=== PATIENT | female | born 1955 | race Caucasian/White ===

== ENCOUNTER 2017-04-13 20:15 | Observation (INO) | payer OTHER ==
[~2017-04-13] VITALS: Ht 162.6 cm; Wt 92.3 kg
[2017-04-13 20:19] VITALS: BP 129/69; PULSE 73; RESP 16; O2SAT 96
--- NOTE | 2017-04-13 21:07 | ED.REPORT ---
HPI-General Illness Date of Service Apr 13, 2017 ED Provider: Dr. Neri Pt is a generally healthy 62 y/o female presenting to the ED with chief complaint of LUE weakness onset today. Today she experienced left upper chest pain at around 15:00 and also left arm weakness which was present at that time and has persisted and has possibly worsened. Her chest pain did not radiate anywhere and she has no history of cardiac disease. Pt denies arm pain, SOB, nausea, vomiting, lightheadedness, dizziness, numbness/weakness/tingling in any other extremities, vision or speech changes. She denies any leg swelling or pain , hemoptysis, She states she was seen in an ED in [place] recently and discharged with a diagnosis of pancreatitis. There is no history of stroke, DM, HTN, HLD, or smoking. Nursing Notes Stated Complaint: LEFT ARM WEAKNESS Chief Complaint: General Complaint Nursing Notes Reviewed: Yes Allergies: Coded Allergies: No Known Allergies (Unverified Allergy, Unknown, 08/13/14) Scheduled Aspirin (Aspirin) 81 Mg Tablet 81 MG PO QAM Calcium Citrate/Vitamin D3 (Citracal + D Maximum Caplet) 1 Each Tablet 1 EACH PO DAILYWL Levothyroxine (Levothyroxine) 100 Mcg Tablet 100 MCG PO QAM [place]-3/Dha/Epa/Fish Oil (Fish Oil 1,000 mg Softgel) 1 Each Capsule 1 EACH PO DAILY Qce584/Iron Fumarate/FA/Dss ( 19 Tablet) 1 Each Tablet 1 EACH PO DAILYWL Rabeprazole DR (Rabeprazole DR) 20 Mg Tablet 20 MG PO QAM Vit C/E/Zn/Coppr/Lutein/Zeaxan (Preservision Areds 2 Softgel) 1 Each Capsule 1 EACH PO DAILYWL General Time Seen by MD: 21:06 Chief Complaint Weakness (LUE) Hx Obtained From: Patient Sudden in Onset?: No Onset Occurred: 5 - 8 hours ago Symptom Duration: Since onset Location: : Chest Quality: Painful Severity: Current: Mild Severity: Maximum: Mild Similar Sx Previous: No Past Medical History Past Medical History Hx pancreatitis Hypothyroidism RONNY No cardiac history No lung disease. Past Surgical History Reports: Cholecystectomy Smoking History Never Smoker Social History Alcohol Use: Denies alcohol use Ambulatory Status Independent Review of Systems Full Review of Systems Constitutional: Denies: Chills, Fever Respiratory: Denies: Shortness of breath Cardiovascular: Reports: Chest pain GI: Denies: Abdominal pain, Nausea, Vomiting Neurologic: Reports: Focal weakness, Denies: Abnormal movement, Bladder dysfunction, Bowel dysfunction, Change LOC , Confusion, Dizziness, Headache, Lightheaded, Numbness, Problem walking, Seizure, Shaking, Slurred speech, Spinning sensation, Syncope, Unable to speak, Vision change, Weakness Complete sys rev & neg: except as marked. Physical Exam Vital Signs Vital Signs Date Time Temp Pulse Resp B/P Pulse Ox O2 Delivery O2 Flow Rate FiO2 04/13/17 20:19 37.2 73 16 129/69 96 Room Air Initial VS: Reviewed, Vital signs normal Head / Eyes: Atraumatic, Normocephalic ENT: Mucous membranes moist, Conjunctiva normal Neck: Supple, Full range of motion Respiratory: Breath sounds normal, Clear to auscultation, No respiratory distress Cardiovascular: Regular rate & rhythm, Heart sounds normal, Intact distal pulses Abdomen / GI: Soft, Non-tender Extremities: Vascular intact, Neuro intact, No swelling Skin: Warm, Dry, No cyanosis Psychiatric: Mood/affect normal, Behavior normal, Normal thought content General/Constitutional: Awake, Alert, No acute distress, Well appearing, Cooperative, Not toxic appearing Appearance / Presentation: Positive: Obese Neurologic: Oriented X3, Speech NL, No motor deficits, No sensory deficits, CN II - XII intact, Cerebellar NL, Memory NL Interpretation & Diagnostics Lab Results Interpretation Result Diagram: 04/13/170 04/13/17 2210 Test 04/13/17 21:25 04/13/17 21:42 04/13/17 21:52 04/13/17 22:10 Hold Purple Top Tube Received (Received) Hold Blue Top Tube Received (Received) Hold [place] Top Tube Received (Received) Hold Urine Received (Received) White Blood Count 6.2th/mm3 (3.8-10.1) Red Blood Count 4.72mil/mm3 (3.90-5.20) Hemoglobin 14.4g/dL (12.0-15.6) Hematocrit 42.8% (35.0-46.0) Mean Corpuscular Volume 90.7fL (81-100) Mean Corpuscular Hemoglobin 30.5pg (27.0-35.0) Mean Corpuscular Hemoglobin Concent 33.6% (32.0-37.0) Red Cell Distribution Width 13.5% (12.3-15.4) Platelet Count 258bil/L (150-400) Neutrophils (%) (Auto) 51.6% (40-74) Lymphocytes (%) (Auto) 36.4% (14-46) Monocytes (%) (Auto) 8.9% (4-12) Eosinophils (%) (Auto) 2.6% (0-5) Basophils (%) (Auto) 0.3% (0-3) Sodium Level 140mEq/L (134-144) Potassium Level 4.2mEq/L (3.5-5.2) Chloride Level 101mEq/L (97-108) Carbon Dioxide Level 24mmol/L (18-29) Blood Urea Nitrogen 13mg/dL (8-27) Creatinine 0.69mg/dL (0.57-1.00) Estimat Glomerular Filtration Rate 124mL/min (>59) Glucose Level 94mg/dL (60-99) Calcium Level 9.5mg/dL (8.5-10.1) Magnesium Level 2.2mg/dL (1.6-2.6) Total Bilirubin 0.3mg/dL (0.0-1.2) Aspartate Amino Transf (AST/SGOT) 28U/L (0-50) Alanine Aminotransferase (ALT/SGPT) 22U/L (0-32) Alkaline Phosphatase 81U/L (25-165) Troponin T 0.010ug/L (0.0-0.011) Pro-B-Type Natriuretic Peptide 79.86pg/mL (0-287) Total Protein 7.4g/dL (6.4-8.4) Albumin 4.5g/dL (3.4-5.0) Test 04/13/17 22:13 Prothrombin Time 10.1sec (8.1-12.5) Prothromb Time International Ratio 0.95ratio ECG Interpretation Time: 22:47 Interpreted by: ED physician Normal ECG Interpretation: Normal ECG w/ rate of... (65), Normal rate, Normal sinus rhythm, No acute ischemic changes, Normal QRS, Normal axis, Normal intervals, No change from prior ECGs, Adequate tracing X-Ray Chest Interpretation View: Portable, 1 view Interpretation / Wet Read by: Wet read ED physician NL X-Ray Chest Findings: No infiltrate, No acute disease CT Head Interpretation Conclusion: Minimal age-related atrophy. No acute intracranial abnormality. Interpreted by Juan Alba MD Study: Head CT no contrast Interpretation / Wet Read by: Interpret - Radiologist Re-Eval/Medical Decision Med Decision/Clinical Course 62-year-old female history of hypothyroidism presenting complaining of left-sided chest pain and left arm weakness earlier today. Chest pain lasted 30 minutes. Left arm weakness lasted until arrival. She has no history of stroke or heart problems. Vital signs are stable. No EKG changes. Troponins are negative 1. Her neurological exam is normal. Her CT scan shows no acute pathology. Cannot r/o ACS or TIA. Patient will be admitted for ACS rule out and stroke workup. Given aspirin. Source of Hx: Old records Time of Eval: 22:53 Re-Evaluation/Progress Note: Pt rechecked. Informed pt of need for admission for ACS rule-out. Pt understands and agrees with plan for admission. All questions addressed. Consultation : Referral / Consult Name: Alma Nguyen DO Consulted With: Hospitalist Call Returned at: 00:01 Jockey Valet: Will see patient, Agrees with eval, Agrees with plan, Accepts admit Counseled Regarding: Diagnosis, Lab results, Need for admission Discharge & Departure Primary Impression: Chest pain Chest pain type: unspecified Qualified Code: R07.9 - Chest pain, unspecified Additional Impression: LUE weakness Disposition: ADMITTED TO HOSPITAL Discharge Condition All VS Reviewed: Yes Condition: Stable Referrals: OTHER,PHYSICIAN (PCP) (Family) Scribe Attestation Portions of this note were transcribed by Geovanni Wylie. I, Dr. Neri personally performed the history, physical exam and medical decision-making; I reviewed and confirmed the accuracy of the information in the transcribed note. Se Neri MD Apr 13, 2017 21:07 GEOVANNI WYLIE Apr 13, 2017 21:53
[2017-04-13 22:16] LABS: BASOPHILS % (AUTO) 0.3 % (0-3); EOSINOPHILS % (AUTO) 2.6 % (0-5); MONOCYTES % (AUTO) 8.9 % (4-12); Mean Corpuscular Hemoglobin 30.5 pg (27.0-35.0); Mean Corpuscular Volume 90.7 fL (81-100); NEUTROPHILS % (AUTO) 51.6 % (40-74); Platelet Count 258 bil/L (150-400)
[2017-04-13 22:27] LABS: TROPONIN T 0.01 ug/L (0.0-0.011)
[2017-04-13 22:29] LABS: INR 0.95 ratio
[2017-04-13 22:39] LABS: Magnesium 2.2 mg/dL (1.6-2.6)
[2017-04-13] MEDS ORDERED: RABE20TA27 PO (23:45)
[2017-04-13] MEDS ORDERED: LEVO100T6 PO (23:45)
[2017-04-13] MEDS ORDERED: OMEG-38 PO (23:45)
[2017-04-13] MEDS ORDERED: PREN-56 PO (23:45)
[2017-04-13] MEDS ORDERED: VIT1CAPS46 PO (23:45)
[2017-04-13] MEDS ORDERED: CALC-761 PO (23:45)
[2017-04-13] MEDS ORDERED: ASPI-973 PO (23:45)
[2017-04-14] VITALS (10 sets, daily range): BP systolic 108–140; BP diastolic 67–87; PULSE 55–68; RESP 17–18; O2SAT 94–98
[2017-04-14] MEDS ORDERED: Ondansetron 2 mg/mL 2 mL Inj IVPUSH PRN ×2 (00:05→00:35)
[2017-04-14] MEDS ORDERED: Alum-Mag Hydrox-Simeth 30 mL Suspension PO PRN (00:05)
[2017-04-14 00:27] LABS: APPEARANCE,URINE CLEAR (CLEAR,HAZY); COLOR,URINE YELLOW (YELLOW); OCCULT BLOOD,URINE NEGATIVE (NEGATIVE); PH,URINE 6.5 (5.0-8.0); UROBILINOGEN,URINE NORMAL (NORMAL)
[2017-04-14] MEDS ORDERED: Polyethylene Glycol (PEG) 17 Gm Powder PO PRN (00:35)
[2017-04-14] MEDS ORDERED: Labetalol 5 mg/mL 20 mL Inj IVPUSH PRN (00:35)
--- NOTE | 2017-04-14 00:38 | NUR ---
Med Rec completed in ED by pharmacy.
--- NOTE | 2017-04-14 05:21 | PCM.HPMED ---
Subjective Date of Service Apr 14, 2017 Primary Provider: Admitting Physician: Alma Nguyen DO Primary Care Physician: Other,Physician Attending Physician: Alma Nguyen DO Admit Status: From the Emergency Department Chief Complaint: Left arm weakness with chest pain History of Present Illness: Ms. Zavala is a 62-year-old female with past medical history of pancreatitis, hypothyroidism, obstructive sleep apnea who presents to the ED via POV secondary to chest pain and left upper extremity numbness/weakness. Patient states that today 04/13/2017 at approximately 1500 hrs. she was working on her computer when she felt a tightness in her chest lasting approximately 45 minutes. Of note patient states that she "does not manifest pain properly" and has been told by her physicians in the past that she has a high/different pain tolerance/physiological response than other people. Today her chest tightness which she states other people may describe his pain was located in her left sternal area, nonradiating with the severity of 2/10. She denied any accompanying nausea or vomiting, headache or visual disturbances. Nothing made this tightness feel any better or worse. This feeling of tightness was also accompanied with a weakness in her left upper extremity which subsided approximately at the time of her arrival to the ED. After the initial onset of chest tightness and left upper extremity weakness she went about her day and felt a resolution of the chest tightness approximately 40 minutes after it began. The left upper extremity weakness and numbness remained throughout the day and she states she would forget about its presence until she would try to lift a heavy object. She drove to her daughter's house approximately 5 minutes away later that evening described to her what it happened earlier in the day and was immediately brought to the emergency room. At time of interview patient has no complaints, states complete resolution of chest tightness and left upper extremity numbness/weakness. In the emergency room EKG was unremarkable, CT scan normal, neuro exam also unremarkable. Troponins negative 1. Patient admitted for ACS rule out Of note patient was seen in the emergency department in [place] last week for epigastric discomfort which she was told was due to pancreatitis. Review of Systems: A comprehensive review of systems was conducted with the patient and found to be negative except as above in the history of present illness. Allergies Coded Allergies: No Known Allergies (Unverified Allergy, Unknown, 08/13/14) Home Medications Aspirin (Aspirin) 81 Mg Tablet 81 MG PO QAM Calcium Citrate/Vitamin D3 (Citracal + D Maximum Caplet) 1 Each Tablet 1 EACH PO DAILYWL Levothyroxine (Levothyroxine) 100 Mcg Tablet 100 MCG PO QAM [place]-3/Dha/Epa/Fish Oil (Fish Oil 1,000 mg Softgel) 1 Each Capsule 1 EACH PO DAILY Wgm508/Iron Fumarate/FA/Dss ( 19 Tablet) 1 Each Tablet 1 EACH PO DAILYWL Rabeprazole DR (Rabeprazole DR) 20 Mg Tablet 20 MG PO QAM Vit C/E/Zn/Coppr/Lutein/Zeaxan (Preservision Areds 2 Softgel) 1 Each Capsule 1 EACH PO DAILYWL PMH Hx pancreatitis Hypothyroidism RONNY Macular degeneration Reports: Hyperlipidemia Surgical History 4 knee surgeries, 3 right knee 1 left knee Uterine polyp removal 2013 Cholecystectomy 2013 2 C-sections Family History Pancreatitis Hypothyroidism RONNY Social History Hx Alcohol Use: No Hx Substance Use: No Hx Tobacco Use: No Smoking Status: Never Smoker Exam Vital Signs Vital Sign - Last Date Time Temp Pulse Resp B/P Pulse Ox O2 Delivery O2 Flow Rate FiO2 04/13/17 20:19 37.2 73 16 129/69 96 Room Air Intake and Output 04/13/17 04/13/17 04/14/17 Cumulative From/Thru 15:00 23:00 07:00 04/13/17 20:19 - 04/13/17 21:30 Intake Total 0 ml 0 ml Balance 0 ml 0 ml Intake Oral 0 ml 0 ml Exam General: Awake and alert sitting up in hospital bed in no acute distress, well- developed, well-nourished, appropriately interactive. HEENT: Normocephalic, atraumatic. External ears without defect. Pupils equal, round, and reactive to light and accommodation. Anicteric sclerae, moist conjunctivae, and no lid lag. Oropharynx free of erythema and cobble stoning with moist mucosa. Neck: Supple with full range of motion. No jugular venous distension. No bruits. No lymphadenopathy or thyromegaly. Cardiovascular: Regular rate and rhythm with no murmurs, rubs, or gallops appreciated Pulmonary: Clear to auscultation bilaterally with no crackles, wheezes, or rhonchi. Normal respiratory effort with no use of accessory muscles. Abdomen: Bowel tones present. Soft, nontender, nondistended. No hepatosplenomegaly or masses appreciated. Extremities: No clubbing, cyanosis, edema, or lymphadenopathy appreciated. Skin: Normal temperature, turgor, and texture; no rash, ulcers, or subcutaneous nodules appreciated. Neurological: Cranial nerves grossly intact. Normal muscle strength, tone, and bulk. Reflexes, coordination, and sensory function within normal limits. No known gait impairment. Psychiatric: Normal mood and affect. Alert and oriented to person, place, and time. Lab and Diagnostics Result Diagram: 04/13/17220904/13/172209 X-Rays, CTs and MRIs . CT head Conclusion: Minimal age-related atrophy. No acute intracranial abnormality Interpreted by Hernan Lynn M.D. Assessment & Plan Ms. Zavala is a 62-year-old female with past medical history of pancreatitis, hypothyroidism, obstructive sleep apnea admitted for chest pain with left upper extremity weakness & rule out ACS. Chest pain POA. Ongoing -EKG reported to be unremarkable, normal rate normal rhythm and no ST elevations or peaked T waves -Lipid panel shows mixed hyperlipidemia -Initial troponin negative, repeat value pending -Telemetry -ASA -Continue to monitor -no beta chadwick, bradycardia Possible TIA, present on admission. Ongoing -CT shows no acute pathology -Neuro exam unremarkable -Swallow eval pending -PT/OT consult ordered -Continue to monitor Hypothyroidism, present on admission. Ongoing -Continue home levothyroxine Hyperlipidemia, present on admission. -Atorvastatin Patient Status: Patient was admitted under observational status awaiting further laboratory studies. GI Prophylaxis: H2 chadwick VTE Prophylaxis: Sub-Q Heparin (Unfractionated) Resuscitation Status: CPR: Attempt Resuscitation Attending Statement The patient was seen and examined together with house staff on 04/14/2017 and I agree with the history, exam and plan as outlined in the note above. BLOSSOM BOBO DO Apr 14, 2017 00:29 Alma Nguyen DO Apr 14, 2017 07:03 BLOSSOM BOBO DO Apr 14, 2017 00:29
[2017-04-14] MEDS: 0.9% Sodium Chloride 1,000 ML IV SCH ×3 (05:55→19:43)
[2017-04-14 05:58] LABS: BASOPHILS % (AUTO) 0.4 % (0-3); EOSINOPHILS % (AUTO) 2.4 % (0-5); MONOCYTES % (AUTO) 7.6 % (4-12); Mean Corpuscular Hemoglobin 30.9 pg (27.0-35.0); Mean Corpuscular Volume 91.5 fL (81-100); NEUTROPHILS % (AUTO) 44.3 % (40-74); Platelet Count 231 bil/L (150-400)
[2017-04-14] MEDS: Pantoprazole 40 mg ER24 Tablet PO SCH (06:01)
--- NOTE | 2017-04-14 06:13 | NUR ---
Admit to room 3015 with cp. VSS 97% on RA. Oriented to room and POC on whiteboard. Stroke book given. non-slip socks on for safety.
[2017-04-14 06:42] LABS: TROPONIN T 0.01 ug/L (0.0-0.011)
--- NOTE | 2017-04-14 06:48 | NUR ---
IV Start c/o pain with IV once flushed. Requesting IV Therapy as she is a difficult start and has had nine pokes occur for one good placement. Left message with IV Therapy.
--- NOTE | 2017-04-14 07:25 | DRSVH ---
PROCEDURE: X-RAY CHEST ONE VIEW, PORTABLE ([id number]) INDICATIONS: chest pain TECHNIQUE: One view of the chest was acquired. COMPARISON: None. FINDINGS: Surgical changes and devices: None. Lungs and pleura: No pleural effusions or pneumothorax. Lungs are clear. Mediastinum: Mediastinal contours appear normal. Heart size is normal. Bones and chest wall: No suspicious bony lesions. Overlying soft tissues appear unremarkable. IMPRESSION: No acute cardiopulmonary findings. Dictated by: Mayela Lowe M.D. on 04/14/2017 at 7:23 Approved by: Mayela Lowe M.D. on 04/14/2017 at 7:23
[2017-04-14] MEDS: Heparin 5,000 Unit/mL Inj SUBQ SCH ×3 (07:48→21:22)
[2017-04-14] MEDS: Omega-3 Fatty Acids 1,000 mg Capsule PO SCH (07:48)
--- NOTE | 2017-04-14 07:55 | DRSVH ---
PROCEDURE: CT BRAIN WITHOUT CONTRAST ([id number]) INDICATIONS: Stroke TECHNIQUE: Noncontrast 4.5 mm thick angled axial sections acquired from the foramen magnum to the vertex, with c oronal reformats. COMPARISON: None. FINDINGS: Image quality: Excellent. CSF spaces: Basal cisterns are patent. No extra-axial fluid collections. The ventricles are symmet john in size and shape. Brain: No intracranial bleeds or masses. There is cerebral volume loss for age, with resultant vent ricular and sulcal prominence. There are periventricular and deep white matter chronic small vessel ischemic changes. There is intracranial internal carotid artery atherosclerosis. There are early bi lateral basal ganglia calcifications. Skull and face: Calvarium and visualized facial bones appear intact, without suspicious lesions. Sinuses: Visualized sinuses and mastoids are clear. IMPRESSION: 1. No acute intracranial findings. 2. Mild findings likely associated with microvascular ischemic changes. No acute radiographic findings. Dictated by: Mayela Lowe M.D. on 04/14/2017 at 7:51 Approved by: Mayela Lowe M.D. on 04/14/2017 at 7:53
--- NOTE | 2017-04-14 08:54 | NUR ---
Evaluation completed. Please go to "Notes" then click on "Assessments and Notes" (bottom left corner of screen). Then select appropriate discipline tab on top of screen.
--- NOTE | 2017-04-14 11:30 | NUR ---
Diet Patient explained diet before stress test tomorrow. Patient and daughter verbalized understanding. Patient able to walk in room independently. Denies any chest pain/SOB. Explained to her the stress test, she stated that she had completed the treadmill version years ago.
[2017-04-14] MEDS ORDERED: Multivit-Miner-Folic Acid-Iron Tablet PO SCH (12:00)
--- NOTE | 2017-04-14 13:20 | NUR ---
Evaluation completed. Please go to "Notes" then click on "Assessments and Notes" (bottom left corner of screen). Then select appropriate discipline tab on top of screen.
[2017-04-15 05:45] VITALS: BP 124/75; PULSE 64; RESP 20; O2SAT 98
[2017-04-15] MEDS: Pantoprazole 40 mg ER24 Tablet PO SCH (05:47)
[2017-04-15] MEDS: 0.9% Sodium Chloride 1,000 ML IV SCH (05:50)
[2017-04-15 06:03] LABS: Mean Corpuscular Hemoglobin 30.5 pg (27.0-35.0); Mean Corpuscular Volume 91.4 fL (81-100)
[2017-04-15 06:26] LABS: TROPONIN T 0.01 ug/L (0.0-0.011)
[2017-04-15] MEDS: Heparin 5,000 Unit/mL Inj SUBQ SCH ×2 (07:38→07:51)
[2017-04-15] MEDS: Omega-3 Fatty Acids 1,000 mg Capsule PO SCH (07:43)
--- NOTE | 2017-04-15 07:52 | NUR ---
Pt off unit for stress test
[2017-04-15 09:45] VITALS: BP 150/88; PULSE 58; RESP 18; O2SAT 95
--- NOTE | 2017-04-15 10:46 | DRSVH ---
PROCEDURE: 1 DAY TREADMILL STRESS TEST Rest and exercise myocardial perfusion SPECT with gated imaging and ejection fraction RADIOPHARMACEUTICAL: 11.1 mCi Tc-99m tetrafosmin IV at rest and 25.8 mCi Tc-99m tetrafosmin IV at pea k exercise. [id number] was performed. INDICATIONS: 62 year-old woman with chest pain. The patient has hypertension. TECHNIQUE: Radiopharmaceutical was injected at peak stress test, and also at rest. SPECT images wer e obtained. SPECT myocardial perfusion images were displayed in short axis, horizontal long axis, an d vertical long axis views. Gated images were reviewed using ieCrowdQUANT software. COMPARISON: None. CARDIAC STRESS: A standard Brian treadmill exercise tolerance test was performed by the patient under the supervision of an attending staff. The patient exercised for 8 minutes and 14 seconds; functional aerobic impai rment (LUCIANO) is -19 %. Hemodynamic data: There is normal blood pressure and heart rate response to exercise stress. Patien t achieved 95% of maximum predicted heart rate at peak exercise. Symptoms: Patient denied chest pain during exercise. EKG: No diagnostic EKG changes of ischemia; no ectopy. FINDINGS: Raw data: There is good myocardial labeling by radiotracer. No significant motion artifacts. Left ventricle function: Gated images demonstrate normal left ventricle wall thickening. No segment al wall motion abnormality. No transient ischemic dilation. The left ventricle resting end-diastoli c volume is normal. Left ventricle stress ejection fraction is greater than 70%; normal values are a braxton 45%. Myocardial perfusion: There is normal distribution of activity in the left and right ventricular alec cardium. No fixed or reversible perfusion defects. IMPRESSION: 1. Normal myocardial perfusion images. 2. Normal left ventricular volume and systolic function. 3. Above average exercise capacity. No chest pain or diagnostic EKG changes for ischemia. PQRS ATTESTATIONS: Measure 322 - Is this imaging test primarily performed on a low-risk surgery patient for preoperative evaluation within 30 days preceding their low-risk non-cardiac surgery? Low-risk surgery is defined as cardiac or myocardial infarction less than 1%, including (but not limited to) endoscopic pr ocedures, superficial procedures, cataract surgery, and excisional breast surgery: Answer: No Measure 323 - Is this imaging test performed primarily for the monitoring of an asymptomatic patient who had percutaneous coronary intervention on the visit date or within 2 years of the visit date? An swer: No Measure 324 - Is this imaging test performed primarily for the initial detection and risk assessment on an asymptomatic, low coronary heart disease patient? Low CHD risk definition = clinicians should consider the maximum number of available patient factors used to estimate risk based on Powell (A TP III criteria), typically age, gender, diabetes, smoking status, and use of blood pressure medicati on, and integrate age appropriate estimates for missing elements, such as LDL or standard blood press ure. Answer: No Dictated by: Nick De La Torre M.D. on 04/15/2017 at 10:39 Approved by: Nick De La Torre M.D. on 04/15/2017 at 10:45
[2017-04-15 11:05] VITALS: PULSE 80
[2017-04-15] MEDS ORDERED: ATOR10TA66 PO (11:23)
--- NOTE | 2017-04-15 11:29 | PCM.DIMED ---
Discharge Instructions Date of Service Apr 15, 2017 Dates of Hospitalization Apr 13, 2017 at 23:40 Discharge Diagnosis Discharge Diagnosis Possible nerve impingement Possible TIA Chest pain Hypothyroidism Hyperlipidemia Diet Discharge Diet: Low fat, Low Sodium, Heart Healthy Activity Discharge Activity: No restrictions Call your provider Call your provider for: Fever or Chills, Shortness of breath, Weakness ( unilateral) Patient Instructions Patient Instructions At this point in times it seems like he most likely had a nerve impingement as the weakness you experiencing to be on one side and positional. MRI was negative for any signs of stroke and all of her symptoms have resolved. You also had a cardiac cath and that was normal. Follow-up plan Your cholesterol was elevated and you have been started on atorvastatin. Please follow-up with your primary care physician as he may need to increase this dose at a later date. Please adhere to a low fat low cholesterol diet Follow-up with PCP in: 1 week (please follow-up with your primary care physician. If an appointment has not been made please call to schedule an appointment in the next 1-2 weeks) Sarah Vila DO Apr 15, 2017 11:29
--- NOTE | 2017-04-15 11:30 | PCM.DC.MED ---
Discharge Summary Date of Service Apr 15, 2017 Dates of Hospitalization Date of Hospital Admission Apr 13, 2017 at 23:40 Date of Discharge: Apr 15, 2017 Providers: Admitting Physician: Alma Nguyen DO Primary Care Physician: Other,Physician Attending Physician: Sarah Vila DO Diagnosis at Time of Discharge Diagnosis at Time of Discharge Possible nerve impingement Possible TIA Chest pain Hypothyroidism Hyperlipidemia Procedures XRay, CTs & MRIs . CT head Conclusion: Minimal age-related atrophy. No acute intracranial abnormality Interpreted by Hernan Lynn M.D. PROCEDURE: 1 DAY TREADMILL STRESS TEST IMPRESSION: 1. Normal myocardial perfusion images. 2. Normal left ventricular volume and systolic function. 3. Above average exercise capacity. No chest pain or diagnostic EKG changes for ischemia. Dictated by: Nick De La Torre M.D. on 04/15/2017 at 10:39 Approved by: Nick De La Torre M.D. on 04/15/2017 at 10:45 Brief History Ms. Zavala is a 62-year-old female with past medical history of pancreatitis, hypothyroidism, obstructive sleep apnea who presents to the ED via POV secondary to chest pain and left upper extremity numbness/weakness. Patient states that today 04/13/2017 at approximately 1500 hrs. she was working on her computer when she felt a tightness in her chest lasting approximately 45 minutes. Patient presented with chest pain as well. The patient was admitted for a chest pain rule out as well as a TIA workup. Patient's MRI was negative for any signs of CVA and after further exam the patient's left arm weakness was most likely secondary to an impinged nerve. The patient had weakness only in certain positions and it was not diffuse as it would be in a TIA. The patient also had negative troponins and then was sent for a cardiac stress test which came back normal. Of note the patient did have elevated cholesterol with an LDL of 168, total cholesterol 250 triglycerides 162. The patient was started on atorvastatin 10 mg daily and was told to follow -up with her primary care physician as this may need to be titrated up. The patient is being discharged home in stable condition. Hospital Course Ms. Zavala is a 62-year-old female with past medical history of pancreatitis, hypothyroidism, obstructive sleep apnea admitted for chest pain with left upper extremity weakness & rule out ACS. Chest pain POA. Ongoing -EKG reported to be unremarkable, normal rate normal rhythm and no ST elevations or peaked T waves -Lipid panel shows mixed hyperlipidemia -Initial troponin negative, repeat value pending -Telemetry -ASA -no beta chadwick, bradycardia Possible TIA, present on admission. Ongoing -CT shows no acute pathology -Neuro exam unremarkable -Swallow eval passed -PT/OT consult patient has no deficits and cleared to go home -Continue to monitor Hypothyroidism, present on admission. Ongoing -Continue home levothyroxine Hyperlipidemia, present on admission. -Atorvastatin 10 mg daily Exam Vital Signs (Last) Date Time Temp Pulse Resp B/P Pulse Ox O2 Delivery O2 Flow Rate FiO2 04/15/17 11:05 80 04/15/17 09:45 36.5 18 150/88 95 Room Air Exam Physical Exam: GEN: Patient was awake, alert, responding appropriately to questions HEENT: Pupils equal round and reactive to light, extraocular eye muscles intact , Neck soft supple, trachea midline, nomocephalic/atraumatic CV: +S1/S2, regular rate and rhythm, no murmurs auscultated Respiratory: CTAB, no wheezes, rales, rhonchi GI: +bowel sounds x4, soft, compressible, nontender to palpation EXT: no clubbing, cyanosis, edema Neuro: Cranial nerves II-XII grossly intact Psych: mood and affect were appropriate Test 04/13/17 21:25 04/13/17 21:42 04/13/17 21:52 04/13/17 22:10 Urine Color Yellow (YELLOW) Urine Appearance Clear (CLEAR,HAZY) Urine pH 6.5 (5.0-8.0) Urine Specific [place] 1.010 (1.003-1.035) Urine Protein Negativemg/dL (NEG,TRACE) Urine Glucose (UA) Negativemg/dL (NEGATIVE) Urine Ketones Negativemg/dL (NEGATIVE) Urine Occult Blood Negative (NEGATIVE) Urine Nitrite Negative (NEGATIVE) Urine Bilirubin Negative (NEGATIVE) Urine Urobilinogen Normalmg/dL (NORMAL) Urine Leukocyte Esterase Moderate (NEGATIVE) Urine RBC 0-2/hpf (0-2) Urine WBC 11-50/hpf (0-5) Urine Epithelial Cells Few/hpf (NONE-MOD) Urine Crystals None seen (NONE SEEN) Urine Bacteria Few/hpf (NONE-FEW) Urine Hyaline Casts None/lpf (NONE) Urine Granular Casts None seen (NONE SEEN) Urine Waxy Casts None seen (NONE SEEN) Urine Red Blood Cell Casts None seen (NONE SEEN) Urine White Blood Cell Casts None seen (NONE SEEN) Urine Mucus None seen (None Seen) Urine Trichomonas None seen (NONE SEEN) Urine Yeast None (NONE SEEN) Urinalysis Comment None Urine Culture Reflexed Indicated Hold Purple Top Tube Received (Received) Hold Blue Top Tube Received (Received) Hold [place] Top Tube Received (Received) Hold Urine Received (Received) Pro-B-Type Natriuretic Peptide 79.86pg/mL (0-287) Triglycerides Level 162mg/dL (0-149) Cholesterol Level 250mg/dL (100-199) LDL Cholesterol, Calculated 168.600mg/dL (0-99) VLDL Cholesterol 32.400mg/dL HDL Cholesterol 49mg/dL (>39) Cholesterol/HDL Ratio 5.10 (0.0-4.4) Lipase 83U/L (13-60) Test 04/13/17 22:13 04/14/17 05:35 04/15/17 05:50 Prothrombin Time 10.1sec (8.1-12.5) Prothromb Time International Ratio 0.95ratio Neutrophils (%) (Auto) 44.3% (40-74) Lymphocytes (%) (Auto) 45.1% (14-46) Monocytes (%) (Auto) 7.6% (4-12) Eosinophils (%) (Auto) 2.4% (0-5) Basophils (%) (Auto) 0.4% (0-3) Hemoglobin A1c 5.9% (4.8-5.6) Thyroid Stimulating Hormone (TSH) 0.957uIU/mL (0.450-4.500) White Blood Count 4.9th/mm3 (3.8-10.1) Red Blood Count 4.43mil/mm3 (3.90-5.20) Hemoglobin 13.5g/dL (12.0-15.6) Hematocrit 40.5% (35.0-46.0) Mean Corpuscular Volume 91.4fL (81-100) Mean Corpuscular Hemoglobin 30.5pg (27.0-35.0) Mean Corpuscular Hemoglobin Concent 33.3% (32.0-37.0) Red Cell Distribution Width 13.4% (12.3-15.4) Platelet Count 239bil/L (150-400) Sodium Level 143mEq/L (134-144) Potassium Level 4.3mEq/L (3.5-5.2) Chloride Level 108mEq/L (97-108) Carbon Dioxide Level 21mmol/L (18-29) Blood Urea Nitrogen 17mg/dL (8-27) Creatinine 0.63mg/dL (0.57-1.00) Estimat Glomerular Filtration Rate 138mL/min (>59) Glucose Level 110mg/dL (60-99) Calcium Level 8.6mg/dL (8.5-10.1) Magnesium Level 2.0mg/dL (1.6-2.6) Total Bilirubin 0.2mg/dL (0.0-1.2) Aspartate Amino Transf (AST/SGOT) 20U/L (0-50) Alanine Aminotransferase (ALT/SGPT) 20U/L (0-32) Alkaline Phosphatase 76U/L (25-165) Troponin T 0.010ug/L (0.0-0.011) Total Protein 6.2g/dL (6.4-8.4) Albumin 3.9g/dL (3.4-5.0) Discharge Medications Discharge Medications Aspirin (Aspirin) 81 Mg Tablet 81 MG PO QAM (Reported) Atorvastatin Calcium (Atorvastatin Calcium) 10 Mg Tablet 10 MG PO HS Prescribed by: SARAH VILA DO Calcium Citrate/Vitamin D3 (Citracal + D Maximum [place]) 1 Each Tablet 1 EACH PO DAILYWL (Reported) Levothyroxine (Levothyroxine) 100 Mcg Tablet 100 MCG PO QAM (Reported) [place]-3/Dha/Epa/Fish Oil (Fish Oil 1,000 mg Softgel) 1 Each Capsule 1 EACH PO DAILY (Reported) [id number]/Iron Fumarate/FA/Dss ( 19 Tablet) 1 Each Tablet 1 EACH PO DAILYWL (Reported) Rabeprazole DR (Rabeprazole DR) 20 Mg Tablet 20 MG PO QAM (Reported) Vit C/E/Zn/Coppr/Lutein/Zeaxan (Preservision Areds 2 Softgel) 1 Each Capsule 1 EACH PO DAILYWL (Reported) Followup Plan Follow-up plan Your cholesterol was elevated and you have been started on atorvastatin. Please follow-up with your primary care physician as he may need to increase this dose at a later date. Please adhere to a low fat low cholesterol diet Discharge Diet: Low fat, Low Sodium, Heart Healthy Discharge Activity: No restrictions Patient Instructions At this point in times it seems like he most likely had a nerve impingement as the weakness you experiencing to be on one side and positional. MRI was negative for any signs of stroke and all of her symptoms have resolved. You also had a cardiac cath and that was normal. Follow-up with PCP in: 1 week (please follow-up with your primary care physician. If an appointment has not been made please call to schedule an appointment in the next 1-2 weeks) Time spent Greater than 35 minutes Sarah Vila DO Apr 15, 2017 11:30
--- NOTE | 2017-04-15 12:25 | NUR ---
Discharge Reviewed discharge paperwork, care notes and medications as prescribed - disclaimer signed by pt. IV DCd intact, tele removed, all belongings with pt. Pt denies pain and SOB, weakness not present. Pt declined WC escort, walking out on foot with daughter -driving pt home. Strong and steady on feet.
--- NOTE | 2017-04-15 13:31 | NUR ---
Social Work-screening/discharge: Data:EMR Reviewed. Pt is a 62 y/o female who was admitted on 04/13/17 for chest pain per H&P. Pt's insurance is [employer] and PCP is other. Pt is medically stable for discharge. Pt has been cleared by PT and ST For home no needs.Pt's family to provide transport home today. No discharge needs identified. All updated and agreeable to plan. Assessment:Pt who is independent at baseline. Plan:Pt to discharge home today via POV. No discharge needs identified. All updated and agreeable to plan. MAR Valente
== END 2017-04-15 12:25 | disposition home or self-care (01) ==
LOC: SED 20:15 → MPC 23:40
PROVIDERS: ADMIT Internal Medicine; ATTEND Internal Medicine
DX: R07.9 Chest pain, unspecified (principal); E03.9 Hypothyroidism, unspecified; E78.5 Hyperlipidemia, unspecified; R53.1 Weakness; G47.33 Obstructive sleep apnea (adult) (pediatric); Z87.19 Personal history of other diseases of the digestive system; Z79.82 Long term (current) use of aspirin
CPT/HCPCS: 36415; 70450; 71010; 78452; 80053; 80061; 81000; 83036; 83690; 83735; 83880; 84443; 84484; 85025; 85027; 85610; 87086; 87088; 92610; 93005; 93017; 96372; 97161; 99285; A9502; G0378; G8978; G8979; G8980; J1644; J7030